=== PATIENT | female | born 1970 | race Caucasian/White ===

== ENCOUNTER 2018-04-03 11:16 | Outpatient (REF) | payer BC, SELFPAY ==
--- NOTE | 2018-04-03 10:45 | PAPFT_PTH ---
PATIENT: Marlene Choe LOC: [facility] U#:[id number] AGE/SX: 47/F ROOM: RE04/03/[address]: SABIHA Galvez : 1970 BED: DIS: 04/03/2018 SPEC #: [id number] RECD: 04/03/18 12:57 STATUS: STEFANO REDimitris #: [id number] ASH: 04/03/18 10:[address]: Jackeline Ramos DEPT: [facility] Cytology RECD BY: Sharron Moralez ENTERED: 04/03/18 12:58 SP TYPE: PAPFT OTHR DR: Elie Chowdhury Tissues: 1 - CX/ENDOCX FOR PAP SMEARS Procedures: PAP THIN PREP/UVM Screening HPV DNA PROBE Comments: [id number]
== END 2018-04-03 11:36 ==
LOC: LBN 11:16
PROVIDERS: PCP Family Medicine; Visit Provider Nurse Practitioner Family
DX: Z12.4 Encounter for screening for malignant neoplasm of cervix (principal)
CPT/HCPCS: 88142; 87624

== ENCOUNTER 2018-04-20 16:04 | Outpatient (REF) | payer BC, SELFPAY ==
--- NOTE | 2018-04-20 14:55 | ENDO_PTH ---
PATIENT: Marlene Choe LOC: [facility] U#:[id number] AGE/SX: 47/F ROOM: RE04/20/[address]: Seth Jaramillo MD : 1970 BED: DIS: 04/20/2018 SPEC #: [id number] RECD: 04/20/18 17:20 STATUS: STEFANO REQ #: [id number] ASH: 04/20/18 14:[address]: Seth Jaramillo DEPT: Surgical Specimen RECD BY: Sharron Moralez ENTERED: 04/20/18 17:21 SP TYPE: Endo OTHR DR: Elie Chowdhury Tissues: 1 - ENDOCERVICAL BX/CURRETTE Procedures: GROSS AND MICRO LEVEL 4 Comments: [id number]
== END 2018-04-20 16:24 ==
LOC: LBN 16:04
PROVIDERS: PCP Family Medicine; Visit Provider Obstetrics & Gynecology
DX: N87.9 Dysplasia of cervix uteri, unspecified (principal); R87.810 Cervical high risk human papillomavirus (HPV) DNA test positive
CPT/HCPCS: 88305

== ENCOUNTER 2018-04-26 00:19 | Outpatient (CLI) | payer BC, SELFPAY ==
--- NOTE | 2018-04-26 07:35 | DI.MAMMO_ITS ---
SYMPTOMS/DIAGNOSIS: SCREENING, Z12.31 MAMMOGRAMS: Mammograms were interpreted according to the usual protocol including computer analysis with CAD system, tomosynthesis and C view imaging. Comparison is with the prior examinations. No suspicious masses or microcalcifications are seen. There is no definite evidence of malignancy. IMPRESSION: Negative mammogram. Routine screening is recommended. Breast density C, category 1. SA ASSESSMENT OF FINDINGS: Negative. Category 1. Patient will receive a letter notifying them of these results. Bi-RADS category C. The breasts are heterogeneously dense, which may obscure small masses.
== END 2018-04-26 00:39 ==
PROVIDERS: PCP Family Medicine; Visit Provider Obstetrics & Gynecology
DX: Z12.31 Encounter for screening mammogram for malignant neoplasm of breast (principal)
CPT/HCPCS: 77063; 77067

== ENCOUNTER 2018-04-30 00:34 | Outpatient (CLI) | payer BC, SELFPAY ==
--- NOTE | 2018-04-30 09:46 | DI.US_ITS ---
SYMPTOMS/DIAGNOSIS: PELVIC PAIN WITH HX OF ENDOMETRIOSIS, N80.9 PELVIC ULTRASOUND: Transabdominal and transvaginal exams were performed. The patient is status post hysterectomy. The cervix is in place. There are a few small Nabothian cysts. The left ovary was unable to be seen transvaginally but appeared normal on the transabdominal images. Several small cysts are seen on the right ovary. No suspicious masses are identified. There is no evidence of free fluid or hydronephrosis. A cyst is seen at the upper pole of the right kidney. IMPRESSION: Status post hysterectomy. Small right ovarian cysts.
== END 2018-04-30 00:54 ==
PROVIDERS: PCP Family Medicine; Visit Provider Obstetrics & Gynecology
DX: R10.2 Pelvic and perineal pain (principal); N80.9 Endometriosis, unspecified; N83.291 Other ovarian cyst, right side; Z90.710 Acquired absence of both cervix and uterus
CPT/HCPCS: 76830; 76856

== ENCOUNTER 2019-04-05 17:21 | Outpatient (REF) | payer BC, SELFPAY ==
--- NOTE | 2019-04-05 14:45 | PAPFT_PTH ---
PATIENT: Marlene Choe LOC: [facility] U#:[id number] AGE/SX: 48/F ROOM: RE04/05/[address]: SABIHA Galvez : 1970 BED: DIS: 04/05/2019 SPEC #: [id number] RECD: 04/05/19 17:51 STATUS: STEFANO REDimitris #: [id number] ASH: 04/05/19 14:[address]: Jackeline Ramos DEPT: [facility] Cytology RECD BY: Sharron Moralez ENTERED: 04/05/19 17:52 SP TYPE: PAPFT OTHR DR: Elie Chowdhury Tissues: 1 - CX/ENDOCX FOR PAP SMEARS Procedures: PAP THIN PREP/UVM Screening HPV DNA PROBE Comments: [id number]
== END 2019-04-05 17:41 ==
LOC: LBN 17:21
PROVIDERS: PCP Family Medicine; Visit Provider Nurse Practitioner Family
DX: Z12.4 Encounter for screening for malignant neoplasm of cervix (principal); Z11.51 Encounter for screening for human papillomavirus (HPV)
CPT/HCPCS: 88142; 87624

== ENCOUNTER 2019-04-29 01:21 | Outpatient (CLI) | payer BC, SELFPAY ==
--- NOTE | 2019-04-29 09:00 | DI.MAMMO_ITS ---
EXAM: MAMMO SCREENING CLINICAL HISTORY: Screening, Z12.31 TECHNIQUE: Mammograms were interpreted according to the usual protocol including computer analysis w [employer] CAD system, tomosynthesis and C-view imaging. COMPARISON: April 2018 FINDINGS: The breasts are heterogeneously dense. No dominant mass or clumped microcalcification is identified in either breast. Current examination is compared with previous examinations including April 2018 and there has been no gross interval change in appearance in comparison with previous studies. IMPRESSION: No specific evidence of malignancy at this time. Routine screening examinations are suggested at year ly intervals in this age group according to the ACS/ACR guidelines. Category 1, breast density catego ry C.
== END 2019-04-29 01:41 ==
PROVIDERS: PCP Family Medicine; Visit Provider Nurse Practitioner Family
DX: Z12.31 Encounter for screening mammogram for malignant neoplasm of breast (principal)
CPT/HCPCS: 77063; 77067

== ENCOUNTER 2019-05-09 01:46 | Outpatient (CLI) | payer BC, SELFPAY ==
[2019-05-09 07:52] VITALS: BP 104/73; PULSE 96; RESP 16; TEMP 37; O2SAT 96
[2019-05-09 08:40] VITALS: PULSE 82; RESP 17; O2SAT 97
--- NOTE | 2019-05-09 08:45 | DI.US_ITS ---
EXAM: US PAIN CLINIC NEEDLE GUIDANCE CLINICAL HISTORY: CERVICAL MYOFASCULAR PAIN SYNDROME, M79.18, TRIGGER POINT INJECTION. TECHNIQUE: Transabdominal and transvaginal pelvic ultrasound was performed using standard protocol. COMPARISON: No exams were available for comparison FINDINGS: Sonography was utilized by Dr. Guevara during the performance of a trigger point injection. Please refe r to the procedure report for complete details. DATA REPOSITORY:
[2019-05-09] MEDS: Lidocaine 2% Pres-Free 5 ML VIAL IJ (08:52)
[2019-05-09] MEDS: methylPREDNISolone ACETATE 40 MG/ML VIAL IJ (08:52)
== END 2019-05-09 02:06 ==
PROVIDERS: PCP Family Medicine; Visit Provider Preventive Medicine Occupational Medicine
DX: M79.18 Myalgia, other site (principal)
CPT/HCPCS: 20553; 76942; J1030

== ENCOUNTER → 2021-08-26 02:48 | Outpatient (CLI) | payer BC, SELFPAY ==
--- NOTE | 2021-08-26 09:26 | DI.MAMMO_ITS ---
Exam(s) MAMMO SCREENING EXAM: MAMMO SCREENING CLINICAL HISTORY: screening TECHNIQUE: Mammograms were interpreted according to the usual protocol including computer analysis w [employer] CAD system, tomosynthesis and C-view imaging. COMPARISON: 2017 through 2019 FINDINGS: The breasts are composed of heterogeneously dense fibroglandular densities, Breast Density category C . No suspicious masses or suspicious microcalcifications are seen. No skin thickening or abnormal axillary lymph nodes are seen. There has been no significant change from prior exams. IMPRESSION: BI-RADS Category 1, Negative mammogram. Yearly screening mammography is recommended. Breast Density Category C, heterogeneously Dense. The mammogram demonstrates the patient's breast tissue is dense. Dense breast tissue is very common a nd is not abnormal but dense breast tissue can make it harder to find cancer on a mammogram. Also, de nse breast tissue may increase breast cancer risk. This information about the result of the mammogram report was provided to the patient to raise their awareness. Use this report when you speak with the patient about their risks for breast cancer, which includes their family history. At that time, you may recommend additional screening tests (Ultrasound or MRI) as they might be useful based on their r isk. A negative radiographic report should not delay biopsy if a dominant or clinically suspicious mass is present. Up to ten percent of cancers are not identified on mammography. A negative report may reinforce clinical impression. Adenosis and dense breasts may obscure an underlying neoplasm. False positive reports average 6 to 10%.
== END ==
PROVIDERS: PCP Family Medicine; Visit Provider Nurse Practitioner Family
DX: Z12.31 Encounter for screening mammogram for malignant neoplasm of breast (principal)
CPT/HCPCS: 77063; 77067

== ENCOUNTER 2022-08-30 13:48 | Outpatient (REF) | payer BC, SELFPAY ==
--- NOTE | 2022-08-30 13:30 | PAPFT_PTH ---
PATIENT: Marlene Choe LOC: [facility] U#:[id number] AGE/SX: 51/F ROOM: RE08/30/[address]: Norma Olivares NP : 1970 BED: DIS: 08/30/2022 SPEC #: [id number] RECD: 08/30/22 17:43 STATUS: STEFANO REDimitris #: [id number] ASH: 08/30/22 13:[address]: Norma Olivares NP DEPT: [facility] Cytology RECD BY: Sharron Moralez ENTERED: 08/30/22 17:44 SP TYPE: PAPFT OTHR DR: Elie Chowdhury Tissues: 1 - CX/ENDOCX FOR PAP SMEARS Procedures: PAP THIN PREP/UVM Screening HPV DNA PROBE Comments: [id number]
== END 2022-08-30 13:49 | disposition home or self-care (01) ==
LOC: LBN 13:48
PROVIDERS: PCP Family Medicine; Visit Provider Nurse Practitioner Women's Health
DX: Z11.51 Encounter for screening for human papillomavirus (HPV) (principal)
CPT/HCPCS: 88142; 87624

== ENCOUNTER → 2022-11-29 01:07 | Outpatient (CLI) | payer BC, SELFPAY ==
--- OUTSIDE RECORDS SUMMARY | 2022-11-29 01:09 | XMS_ITS | CCD ---
Author Name Unknown Address [address] [place] [address] [id number] Organization Unknown Address [address] [place] [address] [id number] Care Team Providers Care Drill Hand Name Role Phone MIRNA KRAUSE Attending Physician [phone] MIRNA KRAUSE Rounding (Secondary) Physici an [phone] Vital Signs Unknown or Not Available. Allergies Unknown or Not Available. Procedures Unknown or Not Available. History of Immunizations Unknown or Not Available. Problems Unknown or Not Available. Results Unknown or Not Available. Active Medications Unknown or Not Available. Medications Administered During Visit Unknown or Not Available. Encounters Encounter Diagnosis Diagnosis Code Start Date Neck pain [id number] 04/20/2022 Social History Smoking Status Code Start Date End Date Current some day smoker [id number] Patient Decision Aids Unknown or Not Available. Discharge Instructions You were admitted to [facility] on 04/20/2022 00:00 with a principal diagnosis of Painful neck You were discharged from [facility] on 04/20/2022 00:00 Should you have any questions prior to discharge, please contact a member of your healthcare team. If you have left the hospital and have any questions, please contact your primary care physician. Chief Complaint and Reason For Visit Unknown or Not Available. Function Status Unknown or Not Available. Plan of Care Unknown or Not Available. Referral/Transition of Care Unknown or Not Available.
--- OUTSIDE RECORDS SUMMARY | 2022-11-29 01:09 | XMS_ITS | CCD ---
Author Name Unknown Address [address] [place] [address] [id number] Organization Unknown Address [address] [place] [address] [phone] Care Team Providers Care Wastewater Technician Name Role Phone MIRNA KRAUSE Attending Physician [phone] MIRNA KRAUSE Rounding (Secondary) Physici an [phone] Vital Signs Unknown or Not Available. Allergies Unknown or Not Available. Procedures Unknown or Not Available. History of Immunizations Unknown or Not Available. Problems Unknown or Not Available. Results Unknown or Not Available. Active Medications Unknown or Not Available. Medications Administered During Visit Unknown or Not Available. Encounters Encounter Diagnosis Diagnosis Code Start Date Pain in left shoulder [id number] 03/09/2022 Social History Smoking Status Code Start Date End Date Current some day smoker [id number] Patient Decision Aids Unknown or Not Available. Discharge Instructions You were admitted to [facility] on 03/09/2022 11:02 with a principal diagnosis of Pain in left shoulder You were discharged from [facility] on 03/09/2022 00:00 Should you have any questions prior [...]
--- NOTE | 2022-11-29 11:03 | DI.MAMMO_ITS ---
Exam(s) MG MAMMO SCREENING 60 MIN DUR EXAM: MG MAMMO SCREENING 60 MIN DUR CLINICAL HISTORY: breast cancer screening, implants, z98.82 TECHNIQUE: Bilateral full field digital CC and MLO mammographic images were obtained with 3D tomosyn thesis and utilizing computer aided detection (CAD). COMPARISON: Available for comparison. FINDINGS: Masses/Architectural Distortion: There are bilateral breast implants again seen. The appear intact. No suspicious masses or areas of architectural distortion are seen. Microcalcifications: No suspicious pleomorphic-type are seen. Skin Thickening/Nipple Retraction: None. IMPRESSION: 1. No significant interval change with no specific features of malignancy noted. 2. Unless there is more urgent need, screening mammography is recommended, as per [employer] guidelines. BI-RADS Category 1 - Negative Breast Density - Category C - Heterogeneously dense Breast density category C or D implies that the patient has dense breast tissue. Dense breast tissue is very common and is not abnormal but dense breast tissue can make it harder to find cancer on a ma mmogram. Also, dense breast tissue may increase their breast cancer risk. This information about the result of the mammogram report was provided to the patient to raise their awareness. Use this report when you speak with the patient about their risks for breast cancer, which includes their family hist ory. At that time, you may recommend for more screening tests (Ultrasound or MRI) as they might be us eful based on their risk. A negative radiographic report should not delay biopsy if a dominant or clinically suspicious mass is present. Up to ten percent of cancers are not identified on mammography. A negative report may reinforce clinical impression. Adenosis and dense breasts may obscure an underlying neoplasm. False positive reports average 6 to 10%. Patient will receive a letter notifying them of these results.
== END ==
PROVIDERS: PCP Family Medicine; Visit Provider Nurse Practitioner Women's Health
DX: Z98.82 Breast implant status (principal); Z12.31 Encounter for screening mammogram for malignant neoplasm of breast
CPT/HCPCS: 77063; 77067

== ENCOUNTER 2024-09-25 11:39 | Outpatient (REF) | payer BC, SELFPAY | END 2024-09-25 11:40 | disposition home or self-care (01) | LOC: LBN 11:39 | PROVIDERS: PCP Family Medicine; Visit Provider Nurse Practitioner Women's Health | DX: N76.0 Acute vaginitis (principal) | CPT/HCPCS: 87480; 87510; 87660 ==

== ENCOUNTER 2024-11-13 16:26 | Outpatient (REF) | payer BC, SELFPAY | END 2024-11-13 16:27 | disposition home or self-care (01) | LOC: LBN 16:26 | PROVIDERS: PCP Family Medicine; Visit Provider Obstetrics & Gynecology | DX: R30.0 Dysuria (principal) | CPT/HCPCS: 87086 ==

== ENCOUNTER 2025-01-01 09:36 | Outpatient (REF) | payer BC, SELFPAY | END 2025-01-01 09:37 | disposition home or self-care (01) | LOC: LBN 09:36 | PROVIDERS: PCP Family Medicine; Visit Provider Nurse Practitioner Women's Health | DX: R30.0 Dysuria (principal) | CPT/HCPCS: 87077; 87086; 87186 ==

== ENCOUNTER 2025-02-10 16:50 | Outpatient (REF) | payer BC, SELFPAY | END 2025-02-10 16:51 | disposition home or self-care (01) | LOC: LBN 16:50 | PROVIDERS: PCP Family Medicine; Visit Provider Family Medicine | DX: N30.00 Acute cystitis without hematuria (principal) | CPT/HCPCS: 87086 ==

== ENCOUNTER 2025-02-20 08:12 | Outpatient (CLI) | payer BC, SELFPAY ==
[2025-02-20 15:32] LABS: TSH (W/Ref FT4) 0.33 uIU/mL (0.55-4.78)
[2025-02-20 15:41] LABS: ALT 15 U/L (10-49); AST 17 U/L (<34); Albumin 4.1 g/dL (3.2-5.0); Alkaline Phosphatase 73 U/L (46-116); Anion Gap 8.6 mmol/L (3-11); BUN 17 mg/dL (9-23); Bilirubin, Total 0.6 mg/dL (0.2-1.2); CO2 29.4 mmol/L (20.0-31.0); Calcium 9.0 mg/dL (8.3-10.6); Chloride 106 mmol/L (98-107); Cholesterol 199 mg/dL (<200); Glucose 75 mg/dL (74-106); HDL Cholesterol 61 mg/dL (>or=50); Potassium 4.4 mmol/L (3.5-5.1); Sodium 144 mmol/L (136-145); Total Protein 6.7 g/dL (5.7-8.2)
[2025-02-20 15:58] LABS: Vitamin B12 1059 pg/mL (211-911)
== END 2025-02-20 08:13 | disposition home or self-care (01) ==
LOC: LBO 08:12
PROVIDERS: PCP Family Medicine; Visit Provider Family Medicine
DX: E53.8 Deficiency of other specified B group vitamins (principal); E03.9 Hypothyroidism, unspecified; Z13.6 Encounter for screening for cardiovascular disorders
CPT/HCPCS: 36415; 80053; 80061; 82607; 84439; 84443